=== PATIENT | male | born 2000 | race Caucasian/White ===

== ENCOUNTER 2021-06-30 08:15 | Day surgery (SDC) | payer BC, SELFPAY ==
[~2021-06-30] VITALS: Ht 165.1 cm; Wt 63.5 kg
[2021-06-30] MEDS ORDERED: ACETAMINOPHEN I.V. 1000 MG /100 ML IVPB PREMIX IV ONE (08:16)
[2021-06-30] MEDS ORDERED: LABETALOL 100 MG/ 20ML VIAL IVP ONE (11:20)
[2021-06-30] MEDS ORDERED: SEVOFLURANE 15 MIN GAS INH ONE (11:20)
[2021-06-30] MEDS ORDERED: MUPIROCIN 2% TOPICAL OINTMENT 22 GM TP ONE (11:20)
[2021-06-30] MEDS ORDERED: OXYMETAZOLINE HCL 0.05% NASAL SPRAY NS ONE (11:20)
[2021-06-30] MEDS ORDERED: ONDANSETRON HCL 4 MG/2 ML VIAL IVP ONE (11:20)
[2021-06-30] MEDS ORDERED: DEXAMETHASONE SOD PHOSPHATE 4 MG/ML VIAL IVP ONE (11:20)
[2021-06-30] MEDS ORDERED: fentaNYL CITRATE 250 MCG/5 ML AMP IV ONE (11:20)
[2021-06-30] MEDS ORDERED: WATER FOR IRRIGATION,STERILE 1,000 ML IRRIG.SOLN IR ONE (11:20)
[2021-06-30] MEDS ORDERED: NS 1000 ML IV.SOLN IV ONE (11:20)
[2021-06-30] MEDS ORDERED: LIDOCAINE/EPI MPF 1%1:200000 30 ML VIAL INJ ONE (11:20)
[2021-06-30] MEDS ORDERED: ROCURONIUM BROMIDE 10 MG/ML (ZEMURON) IV ONE (11:20)
[2021-06-30] MEDS ORDERED: MIDAZOLAM HCL 5 MG/5 ML VIAL IVP ONE (11:20)
[2021-06-30] MEDS ORDERED: ePHEDrine sulfate 50 MG/ML VIAL IVP ONE (11:20)
[2021-06-30] MEDS ORDERED: NS IRRIG SOLN 1000 ML IR ONE (11:20)
[2021-06-30] MEDS ORDERED: PROPOFOL 200MG/ 20ML VIAL (DIPRIVAN) IV ONE (11:20)
[2021-06-30] MEDS ORDERED: MEPERIDINE HCL/PF 25 MG/ML DISP.SYRIN IVP PRN (12:00)
[2021-06-30] MEDS ORDERED: MIDAZOLAM HCL 2 MG/2 ML VIAL (VERSED) IVP PRN (12:00)
[2021-06-30] MEDS ORDERED: METOCLOPRAMIDE HCL 10 MG/2 ML VIAL IVP PRN (12:00)
[2021-06-30] MEDS ORDERED: HYDROmorphone 1 MG/ML INJ. CARTRIDGE IVP PRN ×2 (12:00)
[2021-06-30] MEDS ORDERED: LABETALOL 100 MG/ 20ML VIAL IVP PRN (12:00)
[2021-06-30] MEDS ORDERED: hydrALAZINE HCL 20 MG/ML VIAL IVP PRN (12:00)
[2021-06-30] MEDS ORDERED: LR 1,000 ML IV SCH (12:00)
[2021-06-30 17:28] VITALS: BP_SYST 142
== END 2021-06-30 16:45 | disposition home or self-care (01) ==
LOC: SDS 08:15 → SMU 08:16 → SDS 16:45
PROVIDERS: ATTEND Otolaryngology
DX: J34.89 Other specified disorders of nose and nasal sinuses (principal); D38.5 Neoplasm of uncertain behavior of other respiratory organs; J34.2 Deviated nasal septum; J30.1 Allergic rhinitis due to pollen; J32.0 Chronic maxillary sinusitis; Z20.822 Contact with and (suspected) exposure to COVID-19; Z79.899 Other long term (current) drug therapy
CPT/HCPCS: 30140; 30520; 31255; 31256; 31298; 88305; 88311; C1726; J0131; J1100; J2250; J2405; J2704; J3010; J3490; J7030; U0003; 88304